=== PATIENT | male | born 1930 | race Caucasian/White ===

== ENCOUNTER → 2017-11-22 | Outpatient (CLI) | payer MEDICARE, OTHER ==
[~2017-11-22] MED LIST: ARICEPT 5 MG TAB5 MG PO; ASPIRIN325 PO; CENTRAVITES 501 EAC1 PO; CINNAMON500 MG PO; FISH OIL 1,2001 EAC4 PO; GARLIC1000 MG PO; KLOR-CON 1010 MEQ PO; LUMIGAN2.5 M1 OPHTHALMIC; NAMZARIC 28 MG1 EACH PO; POTASSIUM20 PO; PRILOSEC20 MG PO; PROSCAR 5MG TABL5 MG PO; UROCIT-K5 ME1 PO; VYTORIN 10-401 EACH PO; XALATAN2.5 ML OPHTHALMIC
== END ==
LOC: M.ULTRA 14:00
DX: N28.1 Cyst of kidney, acquired (principal); N17.9 Acute kidney failure, unspecified

== ENCOUNTER → 2017-12-11 | Outpatient (CLI) | payer MEDICARE, OTHER ==
[2017-12-11 08:40] VITALS: BP 109/52
--- NOTE | 2017-12-11 11:45 | NUR ---
ARRIVED PER WHEELCHAIR. TRANSFERED SELF TO RECLINER. REVIEW OF HISTORY AND MEDS. PT NOTED TO HAVE INTERMITANT CONFUSION. IV STARTED AND FLUIDS RUNNING WELL. PT PLAYING WITH IV TUBING AND KEEPS CLAMPING OFF TUBING. PUMP IS ALARMING HIGH PRESSURE. AT 1145 PT REMOVED IV SELF. 4X4 AND COBAN APPLIED. NEW IV STARTED ON RIGHT ARM. INFUSION RESTARTED AT 1150
[2017-12-11 13:40] VITALS: BP 122/59
--- NOTE | 2017-12-11 14:32 | NUR ---
INFUSION COMPLETED AND TOLERATED WELL. DENIES NEEDS AT DISHCARGE.
== END ==
LOC: M.INFUS 04:26
DX: N18.3 Chronic kidney disease, stage 3 (moderate) (principal)

== ENCOUNTER 2018-01-06 18:09 | Inpatient (IN) | payer MEDICARE, OTHER ==
[~2018-01-06] VITALS: Ht 185.4 cm; Wt 76.7 kg
[~2018-01-06 18:09] MED LIST changes: -ARICEPT 5 MG TAB5 MG PO; -CENTRAVITES 501 EAC1 PO; -KLOR-CON 1010 MEQ PO; -LUMIGAN2.5 M1 OPHTHALMIC; -NAMZARIC 28 MG1 EACH PO; -POTASSIUM20 PO; -PROSCAR 5MG TABL5 MG PO; -XALATAN2.5 ML OPHTHALMIC
[2018-01-06 18:21] VITALS: BP 108/49
[2018-01-06] MEDS ORDERED: CENTRAVITES 501 EAC1 PO (18:26)
[2018-01-06] MEDS ORDERED: POTASSIUM20 PO (18:27)
[2018-01-06] MEDS ORDERED: VYTORIN 10-401 EACH PO (18:27)
[2018-01-06 18:59] LABS: ABSOLUTE EOSINOPHILS 0.1 thou/uL (0.0-0.7); ABSOLUTE LYMPHOCYTES 1.1 thou/uL (0.8-5.3); ABSOLUTE MONOCYTES 0.3 thou/uL (0.0-1.2); ABSOLUTE NEUTROPHILS 5.2 thou/uL (1.6-8.1); BASOPHILS 0.7 %; EOSINOPHILS 0.8 %; HEMATOCRIT 38.7 % (42.0-52.0); HEMOGLOBIN 12.8 gm/dL (14.0-18.0); LYMPHOCYTES 15.7 %; MCH 30.7 pg (26.0-34.0); MCHC 33.2 g/dL (28.0-37.0); MCV 92.4 fL (80.0-100.0); MONOCYTES 5.1 %; MPV 7.4 fl. (7.2-11.1); NUCLEATED RBCS 0 /100WBC; PLATELET COUNT* 224 thou/uL (150-400); POLYS 77.7 %; RBC 4.19 mil/uL (4.50-6.00); RDW-CV 15.3 % (10.5-14.5); WBC 6.7 thou/uL (4.0-11.0)
[2018-01-06 19:07] LABS: ANION GAP 11 mmol/L (7-16); BUN 42 mg/dL (7-18); CALCIUM 8.2 mg/dL (8.5-10.1); CHLORIDE 102 mmol/L (98-107); CO2 19 mmol/L (21-32); CREATININE 3.1 mg/dL (0.6-1.3); GLUCOSE 190 mg/dL (70-99); POTASSIUM 3.5 mmol/L (3.5-5.1); SODIUM 132 mmol/L (136-145)
[2018-01-06 19:08] LABS: APTT 29.2 Seconds (25.0-31.3); INR 0.9; PROTIME 9.6 Seconds (9.20-11.50)
[2018-01-06 19:18] LABS: ALBUMIN 3.2 g/dL (3.4-5.0); ALKALINE PHOSPHATASE 57 U/L (46-116); NT-PRO BRAIN NAT PEPTIDE 427 pg/mL (<300); SGOT 17 U/L (15-37); SGPT 22 U/L (30-65); TOTAL BILIRUBIN 0.4 mg/dL (<0.1-1.0); TROPONIN-I LEVEL <0.06 ng/mL (<0.06)
[2018-01-06] MEDS ORDERED: LUMIGAN2.5 M1 OPHTHALMIC (22:37)
[2018-01-07 00:22] VITALS: BP 108/77
[2018-01-07 01:05] VITALS: BP 122/69
[2018-01-07 05:52] LABS: URINE BILIRUBIN NEGATIVE (Negative); URINE BLOOD NEGATIVE (Negative); URINE CLARITY CLEAR; URINE COLOR YELLOW; URINE GLUCOSE-RANDOM NEGATIVE (Negative); URINE KETONES NEGATIVE (Negative); URINE LEUKOCYTES-REFLEX NEGATIVE (Negative); URINE NITRITE-REFLEX NEGATIVE (Negative); URINE PROTEIN NEGATIVE (Negative); URINE UROBILINOGEN 0.2 E.U./dl (0.2-1.0)
[2018-01-07 09:15] VITALS: BP 106/52
[2018-01-07] MEDS ORDERED: ARICEPT 5 MG TAB5 MG PO (13:11)
[2018-01-07] MEDS ORDERED: NAMZARIC 28 MG1 EACH PO (13:13)
--- NOTE | 2018-01-07 14:16 | EKG ---
[place] [address] ELECTROCARDIOGRAM REPORT Name: MALLORY VITALE Room: [address] ADM IN .R.#: [id number] Admission: 01/06/18 Attend Phys: Amie Kumar MD Discharge: Date of : [birth year] Report #: [id number] THIS REPORT FOR: //name// [facility] ED Test Date: 2018-01-06 Test Time: 19:09:05 Pat Name: MALLORY VITALE Department: Room: [facility] Gender: M Online Media Director: JORGE A : 1930 Requested By: David Pierce Order Number: [id number] MD: Dewayne Dale Measurements Intervals Gregory Rate: 65 P: -6 FL: 242 QRS: -64 QRSD: 158 T: 72 QT: 424 QTc: 441 Interpretive Statements Sinus rhythm Multiple ventricular premature complexes Prolonged FL interval RBBB and LAFB Probable left ventricular hypertrophy Baseline wander in lead(s) V1,V5 Compared to ECG 06/05/2013 00:41:05 Ventricular premature complex(es) now present First degree AV block now present Sinus bradycardia no longer present Electronically Signed On 01-07-2018 14:16:43 CDT by Dewayne Dale [email or web address] <ELECTRONICALLY SIGNED> By: Dewayne Dale MD, FACC 01/07/18 1416 08 190 Dewayne Dale MD, [facility] /EPI
[2018-01-08] VITALS: BP 96/59
[2018-01-08 04:09] LABS: HEMATOCRIT 34.1 % (42.0-52.0); HEMOGLOBIN 11.4 gm/dL (14.0-18.0); MCHC 33.3 g/dL (28.0-37.0); MCV 93.1 fL (80.0-100.0); MPV 7.7 fl. (7.2-11.1); RBC 3.67 mil/uL (4.50-6.00); RDW-CV 14.8 % (10.5-14.5); WBC 5.7 thou/uL (4.0-11.0)
[2018-01-08 04:26] LABS: ALBUMIN 2.6 g/dL (3.4-5.0); CALCIUM 7.6 mg/dL (8.5-10.1); CREATININE 2.4 mg/dL (0.6-1.3); MAGNESIUM 1.7 mg/dL (1.8-2.4); POTASSIUM 3.4 mmol/L (3.5-5.1); TOTAL BILIRUBIN 0.5 mg/dL (<0.1-1.0); TOTAL PROTEIN 5.8 g/dL (6.4-8.2)
[2018-01-08 17:11] VITALS: BP 115/54
[2018-01-08 23:31] VITALS: BP 102/49
[2018-01-09 04:09] LABS: HEMOGLOBIN 12.3 gm/dL (14.0-18.0); MCH 30.9 pg (26.0-34.0); MCHC 33.2 g/dL (28.0-37.0); MCV 93.1 fL (80.0-100.0); MPV 7.5 fl. (7.2-11.1); RBC 3.98 mil/uL (4.50-6.00); RDW-CV 15.1 % (10.5-14.5); WBC 7.1 thou/uL (4.0-11.0)
[2018-01-09 04:39] LABS: ALBUMIN 2.8 g/dL (3.4-5.0); CALCIUM 8.8 mg/dL (8.5-10.1); CREATININE 2.3 mg/dL (0.6-1.3); POTASSIUM 3.2 mmol/L (3.5-5.1); TOTAL BILIRUBIN 0.5 mg/dL (<0.1-1.0); TOTAL PROTEIN 6.3 g/dL (6.4-8.2)
[2018-01-09 07:45] VITALS: BP 114/52
[2018-01-09 15:19] VITALS: BP 114/52
[2018-01-09 16:14] VITALS: BP 114/52
== END 2018-01-09 16:15 | DRG 682 ==
LOC: M.ERS 18:09 → M.TBA-ER 22:36 → M.3W 22:36
PROVIDERS: Emergency Medicine Emergency Medical Services; Internal Medicine; ADMIT Internal Medicine
DX: N17.0 Acute kidney failure with tubular necrosis (principal); E43 Unspecified severe protein-calorie malnutrition; G92 Toxic encephalopathy; E87.1 Hypo-osmolality and hyponatremia; G30.9 Alzheimer's disease, unspecified; R73.9 Hyperglycemia, unspecified; N18.9 Chronic kidney disease, unspecified; I95.9 Hypotension, unspecified; F02.80 Dementia in other diseases classified elsewhere, unspecified severity, without behavioral disturbance, psychotic disturbance, mood disturbance, and anxiety; Z85.51 Personal history of malignant neoplasm of bladder; Z85.038 Personal history of other malignant neoplasm of large intestine; Z93.3 Colostomy status; Z87.891 Personal history of nicotine dependence; Z68.22 Body mass index [BMI] 22.0-22.9, adult; Z79.899 Other long term (current) drug therapy

== ENCOUNTER 2018-02-13 19:01 | Emergency (ER) | payer MEDICARE, OTHER ==
[~2018-02-13] VITALS: Ht 182.9 cm; Wt 81.7 kg
[~2018-02-13 19:01] MED LIST changes: +ARICEPT 5 MG TAB5 MG PO; +CENTRAVITES 501 EAC1 PO; +LUMIGAN2.5 M1 OPHTHALMIC; +NAMZARIC 28 MG1 EACH PO; +POTASSIUM20 PO
[2018-02-13] MEDS ORDERED: PROSCAR 5MG TABL5 MG PO (19:26)
[2018-02-13] MEDS ORDERED: XALATAN2.5 ML OPHTHALMIC (19:27)
[2018-02-13] MEDS ORDERED: NAMZARIC 28 MG1 EACH PO (19:28)
[2018-02-13] MEDS ORDERED: KLOR-CON 1010 MEQ PO (19:28)
[2018-02-13 19:54] LABS: ABSOLUTE LYMPHOCYTES 0.7 thou/uL (0.8-5.3); ABSOLUTE MONOCYTES 0.4 thou/uL (0.0-1.2); BASOPHILS 0.6 %; EOSINOPHILS 0.8 %; HEMATOCRIT 34.8 % (42.0-52.0); HEMOGLOBIN 11.4 gm/dL (14.0-18.0); MCH 30.3 pg (26.0-34.0); MCHC 32.8 g/dL (28.0-37.0); MCV 92.4 fL (80.0-100.0); MONOCYTES 7.3 %; MPV 6.8 fl. (7.2-11.1); NUCLEATED RBCS 0 /100WBC; PLATELET COUNT* 240 thou/uL (150-400); POLYS 77.3 %; RBC 3.77 mil/uL (4.50-6.00); WBC 5.1 thou/uL (4.0-11.0)
[2018-02-13 20:01] LABS: ANION GAP 4 mmol/L (7-16); BUN 37 mg/dL (7-18); CALCIUM 8.5 mg/dL (8.5-10.1); CHLORIDE 99 mmol/L (98-107); CO2 32 mmol/L (21-32); CREATININE 2.9 mg/dL (0.6-1.3); GLUCOSE 134 mg/dL (70-99); POTASSIUM 4.5 mmol/L (3.5-5.1); SODIUM 135 mmol/L (136-145)
[2018-02-13 20:08] LABS: ALBUMIN 2.9 g/dL (3.4-5.0); ALKALINE PHOSPHATASE 73 U/L (46-116); SGOT 36 U/L (15-37); SGPT 52 U/L (30-65); TOTAL BILIRUBIN 0.5 mg/dL (<0.1-1.0); TOTAL PROTEIN 6.7 g/dL (6.4-8.2); TROPONIN-I LEVEL <0.06 ng/mL (<0.06)
[2018-02-13 22:22] LABS: URINE BILIRUBIN NEGATIVE (Negative); URINE BLOOD 2+ (Negative); URINE CLARITY CLEAR; URINE COLOR YELLOW; URINE GLUCOSE-RANDOM NEGATIVE (Negative); URINE KETONES TRACE (Negative); URINE LEUKOCYTES-REFLEX TRACE (Negative); URINE NITRITE-REFLEX NEGATIVE (Negative); URINE PROTEIN 1+ (Negative); URINE SPECIFIC GRAVITY 1.015 (1.005-1.030); URINE UROBILINOGEN 0.2 E.U./dl (0.2-1.0)
[2018-02-13 22:44] LABS: SQUAMOUS 4-10 Moderate /LPF (0-3); URINE RBC 3-10 Few /HPF (0-2)
[2018-02-13 22:45] LABS: BACTERIA-REFLEX 1-9 Few /HPF (None Seen); CRYSTALS None Seen /LPF (None Seen); HYALINE CASTS 0-3 Few /LPF (None Seen); MUCUS None Seen strn/LPF (None Seen); URINE WBC-REFLEX 0-5 Rare /HPF (0-5)
[2018-02-13 23:38] VITALS: BP 119/72
--- NOTE | 2018-02-14 12:06 | EKG ---
[place] [address] ELECTROCARDIOGRAM REPORT Name: MALLORY VITALE Luiz [id number] Admission: 02/13/18 Attend Phys: Discharge: 02/13/18 Date of : [birth year] Report #: [id number] THIS REPORT FOR: //name// [facility] ED Test Date: 2018-02-13 Test Time: 21:11:17 Pat Name: MALLORY VITALE Department: Room: Gender: M Public Health Assistant: JORGE A : 1930 Requested By: No Valdez Order Number: [id number] MD: Dewayne Dale Measurements Intervals [place] Rate: 70 P: 68 SC: 194 QRS: -72 QRSD: 140 T: 64 QT: 402 QTc: 434 Interpretive Statements Sinus rhythm with sinus pause Ventricular premature complex RBBB and LAFB Baseline wander in lead(s) V1 Compared to ECG 01/06/2018 19:09:05 sinus pause noted Electronically Signed On 02-14-2018 12:05:55 CDT by Dewayne Dale [email or web address] <ELECTRONICALLY SIGNED> By: Dewayne Dale MD, [facility] 02/14/18 1205 10 10 Dewayne Dale MD, [facility] /EPI
== END 2018-02-13 23:40 | disposition home or self-care (01) ==
LOC: M.ERS 19:01
PROVIDERS: Emergency Medicine
DX: S01.01XA Laceration without foreign body of scalp, initial encounter (principal); W07.XXXA Fall from chair, initial encounter; Y93.89 Activity, other specified; Y92.89 Other specified places as the place of occurrence of the external cause; Y99.8 Other external cause status; Z85.038 Personal history of other malignant neoplasm of large intestine; F03.90 Unspecified dementia, unspecified severity, without behavioral disturbance, psychotic disturbance, mood disturbance, and anxiety; Z87.891 Personal history of nicotine dependence